=== PATIENT | female | born 1995 | race Caucasian/White ===

== ENCOUNTER 2022-09-25 11:18 | Emergency (ER) | payer BC, SELFPAY ==
[2022-09-25] VITALS (15 sets, daily range): BP systolic 101–113; BP diastolic 63–71; PULSE 70–102; RESP 18; TEMP 36.1; O2SAT 90–100; BMI 16.6
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
--- NOTE | 2022-09-25 13:18 | ED.NURSE ---
IV attempted by this RN twice and unable to obtain access. Pt told that second RN can attempt IV, but pt states, you guys can't do anything for this anyway, so I don't want the IV. Steel Crane Operator asks patient if she wants the medications ordered by MD. Pt states, No. Pt's mother states, You need to talk to your charge nurse about being IV trained. Pt's mother educated that RN's are not IV trained at this facility, but pt's mother obstinate and repeatedly states well, you need to talk to your charge nurse about that. Steel Crane Operator leaves room at this time.
--- NOTE | 2022-09-25 14:10 | ED.NURSE ---
Pt apologizes to screenplay writer for pt's mother's comments. Pt states she has had ongoing issues with her mother acting rude to healthcare workers. Pt states she would be open to second RN attempting an IV.
[2022-09-25 14:20] LABS: Chloride* 105 mmol/L (96-114); Potassium* 4.1 mmol/L (3.6-5.1); Sodium* 135 mmol/L (135-149)
[2022-09-25 14:22] LABS: Creatinine* 0.5 mg/dL (0.5-1.5); Est. Creatinine Clearance* 119.95; Estimated Glomerular Filt Rate 131 ml/min
[2022-09-25 14:23] LABS: Blood Urea Nitrogen* 5 mg/dL (5-24); Calcium* 8.8 mg/dL (8.4-10.6); Carbon Dioxide* 20 mmol/L (20-32); Glucose* 59 mg/dL (60-115)
[2022-09-25] MEDS: ONDANSETRON 2 MG/ML inj 4 MG IVP (14:25)
[2022-09-25] MEDS: 5 % DEXTROSE/0.45% SOD CHLOR 1,000 ML 1000 ML IV (14:25)
--- NOTE | 2022-09-25 14:31 | ED.NURSE ---
Pt up to bathroom, ambulatory.
[2022-09-25 15:27] LABS: Basophils Absolute Auto 0.04 K/uL (0.00-0.30); Basophils Percent Auto 0.6 % (0.0-3.0); Eosinophils Absolute Auto 0.01 K/uL (0.00-0.50); Eosinophils Percent Auto 0.1 % (0.0-7.0); Hematocrit 37.3 % (33.0-51.0); Hemoglobin* 12.5 gm/dL (12.0-16.0); Immature Granulocytes Abs Auto 0.06 K/uL (0.00-0.30); Immature Granulocytes Pct Auto 0.9 %; Lymphocytes Percent Auto 20.5 % (20-44); Mean Corpuscular HGB Conc 34 gm/dL (32-36); Mean Corpuscular Hemoglobin 30 pg (26-34); Mean Corpuscular Volume 89 fL (80-100); Monocytes Percent Auto 5.4 % (0.0-11.0); Neutrophils Percent Auto 72.5 % (42.0-72.0); Platelet Count* 249 K/uL (140-440); RDW Coefficient of Variation % 12.5 % (11.5-15.5); Red Blood Count 4.18 m/uL (4.00-5.20); White Blood Count* 6.82 K/uL (4.50-11.00)
[2022-09-25 15:28] LABS: Slide Review Reflex No
== END 2022-09-25 15:57 | disposition home or self-care (01) ==
PROVIDERS: Emergency Provider Emergency Medicine Emergency Medical Services; PCP Family Medicine
DX: R11.10 Vomiting, unspecified (principal)
CPT/HCPCS: 36415; 80048; 85025; 96361; 96374; 99284; J2405; S5010